=== PATIENT | male | born 1960 | race African-American/Black ===

== ENCOUNTER 2016-10-20 08:11 | Emergency (ER) | payer SELFPAY ==
--- NOTE | ~2016-10-20 | CR170 ---
[facility] A Service of [facility] RADIOLOGY TEXT RESULTS PATIENT: MAIK CARVER LOCATION: SED : 62 UNIT #: [id number] AGE: [address]: Bert Redman MD SEX: M ORDER DR: [id number] [place] [id number] E MR#: [id number] #: [id number] NAME: MAIK CARVER : 1960 SEX: M STUDY DATE/TIME: 10/20/2016 8:51 UNIT: SED ROOM: STUDY DESCRIPTION: CR Knee 2 Views Rt Attending Physician: Bert Redman M.D. Ordering Physician: Bert Redman M.D. Primary Care Physician: No Primary Care Physician MEDICAL IMAGING REPORT This report is preliminary unless electronic signature is present. EXAM Right knee 10/20/2016 HISTORY 56-year-old male with right knee pain for 1 day. No specific injury. COMPARISON None. FINDINGS 3 views of the right knee demonstrate no acute fracture or dislocation. No joint effusion. Mild medial compartment joint space narrowing. Soft tissues are unremarkable. IMPRESSION No acute fracture or dislocation. Mild medial compartment joint space narrowing. Dictated by... Tod Lamb M.D. THIS IS AN ELECTRONICALLY VERIFIED REPORT Tod Lamb M.D. at 10/20/2016 2:30 PM SHIVAM/tori TD: 10/20/2016 12:13 JOB #: [id number] MEDICAL IMAGING REPORT Page 1 of 1
[2016-10-20] MEDS ORDERED: NO MEDICATIONS (08:18)
== END 2016-10-20 10:03 | disposition home or self-care (01) ==
LOC: SED 08:11
DX: S86.911A Strain of unspecified muscle(s) and tendon(s) at lower leg level, right leg, initial encounter (principal); F17.200 Nicotine dependence, unspecified, uncomplicated; X58.XXXA Exposure to other specified factors, initial encounter
CPT/HCPCS: 29530; 73560; 99283